=== PATIENT | female | born 1955 | race Caucasian/White ===

== ENCOUNTER → 2017-02-23 | Outpatient (CLI) | payer OTHER | LOC: CIMAGING 13:16 | PROVIDERS: ATTEND Family Medicine | DX: N64.89 Other specified disorders of breast (principal) | CPT/HCPCS: G0206 ==

== ENCOUNTER → 2017-05-11 | Outpatient (CLI) | payer OTHER | LOC: CIMAGING 08:47 | PROVIDERS: ATTEND Family Medicine | DX: Z12.31 Encounter for screening mammogram for malignant neoplasm of breast (principal) | CPT/HCPCS: G0202 ==

== ENCOUNTER → 2017-06-18 | Outpatient (CLI) | payer OTHER | LOC: CIMAGING 12:29 | PROVIDERS: ATTEND Family Medicine | DX: R92.8 Other abnormal and inconclusive findings on diagnostic imaging of breast (principal) | CPT/HCPCS: G0206 ==

== ENCOUNTER 2017-11-05 10:57 | Emergency (ER) | payer OTHER ==
[2017-11-05] MEDS ORDERED: HYDROCODONE/APAP 5/325 TAB PO ONE (11:27)
[2017-11-05] MEDS ORDERED: IBUPROFEN 200 MG TAB PO ONE (11:27)
[2017-11-05] MEDS ORDERED: PROPOFOL 200 MG/20 ML VIAL IVP ONE (11:38)
[2017-11-05] MEDS ORDERED: KETAMINE 100 MG/10 ML SYR IVP ONE (11:39)
--- NOTE | 2017-11-05 12:15 | EDPHY ---
H & P Stated Complaint: rt wrist deformity from fall on ice 30 min [employer] - Personal History Tetanus Vaccine Date: 08/21/2012 - Medical/Surgical History Hx Asthma: No Hx Chronic Respiratory Disease: No Hx Diabetes: No Hx Cardiac Disease: No Hx Renal Disease: No Hx Cirrhosis: No Hx Alcoholism: No Hx HIV/AIDS: No Hx Splenectomy or Spleen Trauma: No Other PMH: MEd hx-depression,gerd,PE. Surg-left knee - Social History Smoking Status: Never smoked Constitutional: Initial Vital Signs Temperature (C) 36.3 C 11/05/17 11:00 Heart Rate 61 11/05/17 11:00 Respiratory Rate 16 11/05/17 11:00 Blood Pressure 166/106 H 11/05/17 11:00 O2 Sat (%) 97 11/05/17 11:00 O2 Delivery Mode Room Air Allergies/Adverse Reactions: oseltamivir phosphate [From Tamiflu] Allergy (Verified 11/05/17 11:12) Home Medications: Medication Instructions Recorded Lyrica Daily 08/27/12 Prozac Daily 08/27/12 Aspirin 11/05/17 Klonopin 11/05/17 Nexium 11/05/17 Medical Decision Making ED Course/Re-evaluation: CHIEF COMPLAINT: Right wrist pain HISTORY OF PRESENT ILLNESS: Just prior to arrival this healthy 62-year-old female was walking her dog. She tried to step over a patch of ice and did not step over a completely. She felt and braced her fall with her right hand. She fell on her outstretched right hand and had immediate pain in her wrist and deformity. She denies any other injuries. REVIEW OF SYSTEMS: A 10 point review of systems was performed and is negative with the exception of the elements mentioned in the history of present illness. PHYSICAL EXAM: HR, BP, O2 Sat, RR. Temp noted General Appearance: Alert, well hydrated, appropriate, and non-toxic appearing. In some pain Head: Atraumatic without scalp tenderness or obvious injury Eyes: Pupils equal, round, reactive to light and accommodation, EOMI, no trauma , no injection. Neck: Supple, no trauma Respiratory: No retractions, no distress, no wheezes, and no accessory muscle use. Lungs are clear to auscultation bilaterally. Cardiovascular: Regular rate and rhythm, no murmurs, rubs, or gallops. Bilateral carotid, radial, dorsalis pedis, and posterior tibial pulses intact. Good capillary refill all extremities. Including the injured extremity Musculoskeletal: There is significant volar deformity to the right wrist. The patient can wiggle her fingers and move her wrist slightly but is quite painful. She is neurovascularly intact distal to the injury. It is not an open fracture. There is no evidence of compartment syndrome. There is no evidence of tenting of the skin. The joints above and below the injury are normal. There is a tiny abrasion skin tear in the webspace between the ring and little finger. This is nonsuturable. Otherwise, Normal active ROM of all extremities , atraumatic. Neurological: Alert, appropriate, and interactive. Skin: See musculoskeletal exam otherwise, No rashes, good turgor, no nodules on palpation. Past medical history: Gastroesophageal reflux disease, depression, anxiety Past surgical history: Noncontributory Family history: Noncontributory Social history: Lives with , does not abuse tobacco drugs or alcohol DIAGNOSTICS/PROCEDURES/CRITICAL CARE TIME: Study: Three views of the right wrist Indication: Trauma Results: After viewing the images myself on the PACS system. My interpretation of the images is: Comminuted intra-articular distal radius fracture with significant volar angulation. Also involving ulnar styloid The radiologist interpretation is pending at the time of this dictation. DIFFERENTIAL DIAGNOSIS: The differential diagnosis for the patient's trauma included but was not limited to intracranial injury, long bone and pelvic bone fractures, spinal injury, intra-abdominal injury, and intra-thoracic injury. MEDICAL DECISION MAKING: This patient has a comminuted distal radial fracture which is intra-articular and significantly volar angulated. This fracture requires reduction. I had a discussion with the patient and her about performing a procedural sedation and closed reduction. I explained the risks and benefits and the patient and her agreed. I was also very clear that although I am performing this procedure it may require additional surgical procedure depending on evaluation by an orthopedic surgeon in follow-up. Procedure: Procedural sedation. Indication: Closed fracture reduction of the right wrist. A pre-sedation evaluation was completed on the patient at 12 noon. The patient has an ASA class 1 airway and modified Mallampati class 1 airway. Patient is an appropriate candidate for procedural sedation. The risks, benefits, alternatives of sedation were discussed with the patient and her . Consent was obtained. The patient was pre-oxygenated with 100% O2 on a [id number] and moved to the procedure room where airway rescue equipment is available. A time out was observed. The patient was sedated with 60 mg of ketamine intravenously and 60 mg of propofol intravenously. The patient was monitored with continuous pulse oximetry, ekg monitor tech, and end tidal CO2. There were no complications and no hypoxemia. The patient tolerated the procedure extremely well and returned to baseline. I remained at the bedside for the sedation. The total time I spent in the procedural sedation was 15 minutes. Procedure: Fracture treatment. The patient had x-rays taken and I confirmed that the patient had a fractured as described above. I do not believe that the patient requires immediate orthopedic consultation, however I do believe this patient needs to have a closed reduction performed. Please see procedure above. After reduction and in trial reduction x-rays showing excellent alignment, A sugar-tong ortho-glass splint was applied with ample cast padding in a position of function. After application of the splint, I re-examined the patient. The splint was adequately immobilizing the joint and distal to the splint the patient's circulation and sensation was intact. The patient is much more comfortable. I do not believe she has affected her median nerve but I will continue to observe her to make sure that she does not have any worsening pain associated with the fracture and nerve compression. Patient is tolerated the procedure well and has excellent post reduction alignment. We will discharge her home with close follow-up. She is a patient of Dr. Christos Hood and I will refer her back to that group. - Data Points Medications Given: Discontinued Medications Ketamine HCl (Ketamine) 60 mg IVP EDNOW ONE Stop: 11/05/17 11:40 Last Admin: 11/05/17 11:56 Dose: 60 mg Propofol (Diprivan) 60 mg IVP EDNOW ONE Stop: 11/05/17 11:39 Last Admin: 11/05/17 11:57 Dose: 60 mg Departure - Departure Disposition: Home, Routine, Self-Care Clinical Impression: History of reduction of closed fracture Wrist fracture, right Qualifiers: Encounter type: initial encounter Fracture type: closed Qualified Code(s): S62.101A - Fracture of unspecified carpal bone, right wrist, initial encounter for closed fracture Condition: Good Instructions: Wrist Fracture in Adults (ED) Additional Instructions: Keep the wrist elevated. Use pain medicine as prescribed. Follow up with Orthopedic surgeon. Dr. Christos Hood is no longer in town but someone from his group will be happy to see you in follow-up. Return here if you have any worsening of pain, numbness or tingling in her fingers, feel like the splint is too tight. Referrals: CAN BURNS [Primary Care Provider] - As per Instructions
[2017-11-05 12:20] VITALS: TEMP 98.2
[2017-11-05] MEDS ORDERED: KETOROLAC 30 MG/1 ML SDV IVP ONE (12:28)
[2017-11-05] MEDS ORDERED: HYDROCOD/APAP 5/325 PREPACK#6 BTL TAKEHOME ONE (12:36)
[2017-11-05] MEDS ORDERED: BACITRACIN OINTMENT 1 PACKET TP ONE (12:57)
[2017-11-05 14:46] VITALS: BP 164/91; PULSE 51; RESP 16; O2SAT 96
== END 2017-11-05 13:42 | disposition home or self-care (01) ==
LOC: CED 10:57
PROC: 0PSHXZZ Reposition Right Radius, External Approach (ICD-10-PCS; principal; 2017-11-05)
DX: S52.571A Other intraarticular fracture of lower end of right radius, initial encounter for closed fracture (principal); Z79.82 Long term (current) use of aspirin; W00.0XXA Fall on same level due to ice and snow, initial encounter; Y99.8 Other external cause status; Y93.01 Activity, walking, marching and hiking
CPT/HCPCS: 73100-PO; 73110-PO; 96374; J1885; J2704

== ENCOUNTER → 2018-05-31 | Outpatient (CLI) | payer OTHER | LOC: CIMAGING 10:58 | PROVIDERS: ATTEND Family Medicine | DX: Z12.31 Encounter for screening mammogram for malignant neoplasm of breast (principal) ==

== ENCOUNTER → 2018-07-10 | Outpatient (CLI) | payer OTHER | LOC: CIMAGING 12:42 | PROVIDERS: ATTEND Family Medicine | DX: R92.8 Other abnormal and inconclusive findings on diagnostic imaging of breast (principal); Z80.3 Family history of malignant neoplasm of breast ==

== ENCOUNTER → 2018-07-23 | Day surgery (SDC) | payer OTHER ==
[~2018-07-23] MED LIST: BUPIVACAINE 0.5% 30 ML SDV ONE; LIDOCAINE 1% 300 MG/30 ML SDV ONE; THROMBIN (BOVINE) 5,000 UNIT VIAL TP ONE
== END ==
LOC: FIMAGING 07:19
PROVIDERS: ATTEND Family Medicine
PROC: 0HBU3ZX Excision of Left Breast, Percutaneous Approach, Diagnostic (ICD-10-PCS; principal; 2018-07-23)
DX: D24.2 Benign neoplasm of left breast (principal)

== ENCOUNTER → 2019-03-06 | Outpatient (CLI) | payer OTHER | LOC: FIMAGING 11:47 | PROVIDERS: ATTEND Family Medicine | DX: R92.8 Other abnormal and inconclusive findings on diagnostic imaging of breast (principal) ==